=== PATIENT | male | born 1935 | race Caucasian/White ===

== ENCOUNTER 2017-03-29 09:24 | Day surgery (SDC) | payer MEDICARE ==
[~2017-03-29] VITALS: Ht 185.4 cm; Wt 93.8 kg
[~2017-03-29 09:24] MED LIST: ABX; ACCUPRIL; AMLO10 PO; ASPI81EC PO; CEPH500 PO; CHOL10002 PO; Cinnamon500 MG PO; DIGO.125 PO; DIGO.25; DILT180 PO; DILT180ER; ERGO50000 PO; GABA300 PO; GLIM4 PO; HCTZ; HYDCHL25; JARDIANCE25 MG PO; LOVA40; METF500; METO100ER; METO100ER PO; PROCARDIA; PROVASTATIN; QUIN10; QUIN5; RAMI2.5 PO; TAZTIA XT360 MG PO; TIMOPTIC; TOPROL XL; TORSE20 PO; TRAV.004OP OD; WARF1; WARF5; [UNRECOGNIZED DRUG - OTHER]; [UNRECOGNIZED DRUG - OTHER]
[2017-03-29 10:23] LABS: International Normalized Ratio 1.51; Prothrombin Time Results 15.9 Sec (9.7-11.5)
[2017-06-05] MEDS ORDERED: COUMADIN (01:09)
[2018-01-22] MEDS ORDERED: TUMS X-STR300 MG PO (13:50)
[2018-01-22] MEDS ORDERED: K-Dur20 MEQ PO (13:51)
[2018-01-22] MEDS ORDERED: FINA5 PO (13:52)
[2018-01-22] MEDS ORDERED: WARF3 PO (13:52)
[2018-01-22] MEDS ORDERED: DONE5 PO (13:53)
[2018-01-22] MEDS ORDERED: PRAV20 PO (13:53)
[2018-01-22] MEDS ORDERED: MIRALAX17 GM PO (13:54)
== END 2017-03-29 14:20 | disposition home or self-care (01) ==
LOC: ORSCSDS 09:24
PROVIDERS: Podiatrist Foot & Ankle Surgery
PROC: 0QBP0ZZ Excision of Left Metatarsal, Open Approach (ICD-10-PCS; principal; 2017-03-29 11:00)
DX: M77.9 Enthesopathy, unspecified (principal); M25.872 Other specified joint disorders, left ankle and foot; M89.9 Disorder of bone, unspecified; I10 Essential (primary) hypertension; E78.5 Hyperlipidemia, unspecified; I50.9 Heart failure, unspecified; I48.91 Unspecified atrial fibrillation; E11.9 Type 2 diabetes mellitus without complications; Z79.01 Long term (current) use of anticoagulants; Z79.899 Other long term (current) drug therapy; Z87.891 Personal history of nicotine dependence
CPT/HCPCS: 82947; 85610; J0690; J2250; J2370; J7120

== ENCOUNTER → 2017-06-05 | Outpatient (CLI) | payer MEDICARE ==
[~2017-06-05] MED LIST changes: +COUMADIN
== END ==
LOC: LAB 17:23 → LAB SHORT 17:23
DX: E11.9 Type 2 diabetes mellitus without complications (principal); Z87.898 Personal history of other specified conditions
CPT/HCPCS: 87070; 87077; 87147; 87186; 87205

== ENCOUNTER → 2019-06-23 | Outpatient (CLI) | payer MEDICARE ==
[~2019-06-23] MED LIST changes: +DONE5 PO; +FINA5 PO; +K-Dur20 MEQ PO; +MIRALAX17 GM PO; +PRAV20 PO; +TUMS X-STR300 MG PO; +WARF3 PO
== END | disposition home or self-care (01) ==
LOC: LAB SHORT 14:20 → LAB 14:20
DX: E11.9 Type 2 diabetes mellitus without complications (principal); L89.521 Pressure ulcer of left ankle, stage 1
CPT/HCPCS: 87070; 87075; 87205

== ENCOUNTER 2019-11-10 00:51 | Day surgery (SDC) | payer MEDICARE ==
[~2019-11-10 00:51] MED LIST changes: +ARTIFICIAL TEAR15 M2 BOTHEYES; -CHOL10002 PO; +COSOPT PF EYE1 EACH RIGHTEYE; -DIGO.125 PO; +LANOXIN125 MCG PO; +TRAVOPROST2.5 ML RIGHTEYE; -TUMS X-STR300 MG PO; +TUMS500 MG PO; +VITAMIN D32000 UNI1 PO
== END 2019-11-10 22:52 | disposition home or self-care (01) ==
LOC: WOUND 00:51
DX: E11.621 Type 2 diabetes mellitus with foot ulcer (principal); M86.172 Other acute osteomyelitis, left ankle and foot; E78.5 Hyperlipidemia, unspecified; L97.522 Non-pressure chronic ulcer of other part of left foot with fat layer exposed; I48.91 Unspecified atrial fibrillation; I11.0 Hypertensive heart disease with heart failure; I50.9 Heart failure, unspecified; Z88.2 Allergy status to sulfonamides; Z87.891 Personal history of nicotine dependence; Z79.899 Other long term (current) drug therapy; Z79.01 Long term (current) use of anticoagulants; Z79.84 Long term (current) use of oral hypoglycemic drugs

== ENCOUNTER 2019-11-17 01:05 | Day surgery (SDC) | payer MEDICARE ==
[2019-11-30] MEDS ORDERED: SEROQUEL25 MG PO (09:41)
== END 2019-11-17 23:20 | disposition home or self-care (01) ==
LOC: WOUND 01:05
DX: E11.621 Type 2 diabetes mellitus with foot ulcer (principal); E11.40 Type 2 diabetes mellitus with diabetic neuropathy, unspecified; M86.172 Other acute osteomyelitis, left ankle and foot; I10 Essential (primary) hypertension; L97.525 Non-pressure chronic ulcer of other part of left foot with muscle involvement without evidence of necrosis; I48.91 Unspecified atrial fibrillation; E78.5 Hyperlipidemia, unspecified; Z79.01 Long term (current) use of anticoagulants; Z79.899 Other long term (current) drug therapy; Z79.84 Long term (current) use of oral hypoglycemic drugs

== ENCOUNTER → 2019-11-21 | Outpatient (CLI) | payer MEDICARE ==
[~2019-11-21] MED LIST changes: +CYAN500 PO; +DIGOX125 MC1 PO; +LINZESS145 MCG PO; +QUET100 PO; +RAMI5 PO; +SEROQUEL25 MG PO; +TIMDOROPSO BOTHEYES; +Vitamin D2000 UNIT PO
[2019-11-21 16:44] LABS: Albumin, Blood 2.9 g/dL (3.4-5.0); Prealbumin, Blood 16.9 mg/dL (20.0-40.0)
== END | disposition home or self-care (01) ==
LOC: LAB 15:10 → LAB SHORT 15:10
PROVIDERS: Surgery
DX: E11.621 Type 2 diabetes mellitus with foot ulcer (principal); L97.509 Non-pressure chronic ulcer of other part of unspecified foot with unspecified severity
CPT/HCPCS: 82040; 83036; 84134

== ENCOUNTER 2019-11-22 09:58 | Emergency (ER) | payer MEDICARE ==
[~2019-11-22] VITALS: Ht 185.4 cm; Wt 97.5 kg
[~2019-11-22 09:58] MED LIST changes: -CYAN500 PO; -DIGOX125 MC1 PO; -LINZESS145 MCG PO; -QUET100 PO; -RAMI5 PO; -SEROQUEL25 MG PO; -TIMDOROPSO BOTHEYES; -Vitamin D2000 UNIT PO
[2019-11-22 10:38] LABS: BASOPHILS ABSOLUTE AUTO 0.05 K/mm3 (0.00-0.23); BASOPHILS PERCENT AUTO 1 % (0-2); EOSINOPHILS ABSOLUTE AUTO 0.12 K/mm3 (0.00-0.68); EOSINOPHILS PERCENT AUTO 2 % (0-6); Hemoglobin 13.2 g/dL (13.5-17.5); IMMATURE GRAN ABSOLUTE AUTO 0.03 K/mm3 (0.00-0.10); IMMATURE GRAN PERCENT AUTO 0 % (0-1); LYMPHOCYTES ABSOLUTE AUTO 1.16 K/mm3 (0.84-5.20); LYMPHOCYTES PERCENT AUTO 15 % (21-46); MONOCYTES ABSOLUTE AUTO 0.94 K/mm3 (0.16-1.47); MONOCYTES PERCENT AUTO 12 % (4-13); Mean Corpuscular HGB 29.3 pg (26.0-34.0); Mean Corpuscular HGB Conc 32.2 g/dL (31.5-36.5); Mean Corpuscular Volume 91 fL (80-100); NEUTROPHILS ABSOLUTE AUTO 5.57 K/mm3 (1.96-9.15); NEUTROPHILS PERCENT AUTO 71 % (41-73); Platelet Count 127 K/mm3 (150-400); RDW Coefficient Variation 13.4 % (11.7-14.2); RDW Standard Deviation 45.1 fL (35.1-46.3); White Blood Cell Count 7.87 K/mm3 (4.00-11.30)
[2019-11-22 10:47] LABS: International Normalized Ratio 2.96; Prothrombin Time Results 29.8 Sec (9.7-11.5)
[2019-11-22 11:07] LABS: Alanine Aminotransfer (ALT/SGP 66 U/L (12-78); Albumin, Blood 3.6 g/dL (3.4-5.0); Alk Phos 95 U/L (50-136); Anion Gap 5 mmol/L (6-16); Aspartate Aminotrans (AST/SGOT 31 U/L (12-37); Bilirubin, Total 1.6 mg/dL (0.1-1.0); Blood Urea Nitrogen 14 mg/dL (8-24); Bun/Creatinine Ratio 14.7 (12.0-20.0); CO2, Blood 25 mmol/L (21-32); Calcium, Blood 9.3 mg/dL (8.5-10.1); Chloride, Blood 110 mmol/L (98-108); Creatinine, Blood 0.96 mg/dL (0.60-1.20); Digoxin (Lanoxin) 0.52 ug/mL (0.80-2.00); Globulin, Blood 3.5 g/dL (2.2-4.0); Glomerular Filtration Rate >60 (60-); Glucose, Blood 114 mg/dL (70-99); Potassium, Blood 3.8 mmol/L (3.5-5.5); Sodium, Blood 140 mmol/L (136-145); Total Protein, Blood 7.1 g/dL (6.4-8.2); Troponin I <0.015 ng/mL (0.000-0.040)
[2019-11-22] MEDS ORDERED: JARDIANCE25 MG PO (11:18)
[2019-11-22] MEDS ORDERED: K-Dur20 MEQ PO (11:19)
[2019-11-22] MEDS ORDERED: DONEPEZIL HCL10 MG PO (11:20)
[2019-11-22] MEDS ORDERED: TAZTIA XT360 MG PO (11:20)
[2019-11-22] MEDS ORDERED: DIGOX125 MC1 PO (11:20)
[2019-11-22] MEDS ORDERED: FINA5 PO (11:21)
[2019-11-22] MEDS ORDERED: GABA300 PO (11:22)
[2019-11-22] MEDS ORDERED: METO100ER PO (11:23)
[2019-11-22] MEDS ORDERED: Vitamin D2000 UNIT PO (11:24)
[2019-11-22] MEDS ORDERED: TORSE20 PO (11:24)
[2019-11-22] MEDS ORDERED: CYAN500 PO (11:26)
[2019-11-22] MEDS ORDERED: RAMI5 PO (11:27)
[2019-11-22] MEDS ORDERED: QUET100 PO (11:27)
[2019-11-22] MEDS ORDERED: GLIM4 PO (11:28)
[2019-11-22] MEDS ORDERED: WARF5 PO (11:28)
[2019-11-22] MEDS ORDERED: LINZESS145 MCG PO (11:29)
[2019-11-22 11:39] LABS: Source, Urine Clean Catch
[2019-11-22 11:45] LABS: Appearance, Urine Clear (Clear); Bilirubin, Urine Neg (Neg); Blood, Urine Neg (Neg); Color, Urine Yellow (P-Yellow); Glucose Qualitative, Urine 4+ (Neg); Ketones, Urine Neg (Neg); Leukocyte Esterase, Urine Neg (Neg); Nitrite, Urine Neg (Neg); Protein, Urine Neg (Neg); Urobilinogen, Urine NORM (Normal)
== END 2019-11-22 17:00 | disposition home or self-care (01) ==
LOC: ER 09:58
PROVIDERS: Emergency Medicine
DX: F03.91 Unspecified dementia, unspecified severity, with behavioral disturbance (principal); R44.1 Visual hallucinations; I48.91 Unspecified atrial fibrillation; D68.32 Hemorrhagic disorder due to extrinsic circulating anticoagulants; T45.515A Adverse effect of anticoagulants, initial encounter; I10 Essential (primary) hypertension; E11.40 Type 2 diabetes mellitus with diabetic neuropathy, unspecified; E78.5 Hyperlipidemia, unspecified; Z88.2 Allergy status to sulfonamides; Z79.84 Long term (current) use of oral hypoglycemic drugs; Z79.899 Other long term (current) drug therapy; Z79.01 Long term (current) use of anticoagulants
CPT/HCPCS: 36415; 70450; 71045; 80053; 80162; 81003; 83605; 84484; 85025; 85610; 93005; 93010; 96360; 96361; 99285-25; J7030

== ENCOUNTER 2019-11-24 00:20 | Day surgery (SDC) | payer MEDICARE ==
[~2019-11-24 00:20] MED LIST changes: +CYAN500 PO; +DIGOX125 MC1 PO; +DONEPEZIL HCL10 MG PO; +LINZESS145 MCG PO; +QUET100 PO; +RAMI5 PO; +Vitamin D2000 UNIT PO; +WARF5 PO
[2019-11-30] MEDS ORDERED: SEROQUEL25 MG PO (09:41)
== END 2019-11-24 22:49 | disposition home or self-care (01) ==
LOC: WOUND 00:20
DX: E11.621 Type 2 diabetes mellitus with foot ulcer (principal); M86.172 Other acute osteomyelitis, left ankle and foot; I10 Essential (primary) hypertension; E78.5 Hyperlipidemia, unspecified; E11.622 Type 2 diabetes mellitus with other skin ulcer; L97.822 Non-pressure chronic ulcer of other part of left lower leg with fat layer exposed; L97.525 Non-pressure chronic ulcer of other part of left foot with muscle involvement without evidence of necrosis; Z79.84 Long term (current) use of oral hypoglycemic drugs; Z79.899 Other long term (current) drug therapy

== ENCOUNTER 2019-12-20 09:28 | Emergency (ER) | payer MEDICARE ==
[~2019-12-20] VITALS: Ht 185.4 cm; Wt 83.9 kg
[~2019-12-20 09:28] MED LIST changes: +ACET325 PO; +ASPI81CH PO; +CIPRO250 MG PO; +DOCUZEN 8.6-501 EACH PO; -DONEPEZIL HCL10 MG PO; +GABA400 PO; +GLYDO11 ML UR; +QUET25 PO; +SEROQUEL25 MG PO; +TIMDOROPSO BOTHEYES; +TRAM50 PO; -WARF5 PO
[2019-12-20] MEDS ORDERED: DORZOLAMIDE-TIM10 ML BOTHEYES (09:43)
[2019-12-20] MEDS ORDERED: DILT180 PO (09:43)
[2019-12-20] MEDS ORDERED: LANOXIN125 MCG PO (09:43)
[2019-12-20] MEDS ORDERED: FINA5 PO (09:43)
[2019-12-20] MEDS ORDERED: CIPRO250 MG PO (09:43)
[2019-12-20] MEDS ORDERED: GLIM4 PO (09:44)
[2019-12-20] MEDS ORDERED: JARDIANCE25 MG PO (09:44)
[2019-12-20] MEDS ORDERED: GLYDO11 ML (09:44)
[2019-12-20] MEDS ORDERED: POTA10T PO (09:44)
[2019-12-20] MEDS ORDERED: PRAV20 PO (09:44)
[2019-12-20] MEDS ORDERED: QUET100 PO (09:45)
[2019-12-20] MEDS ORDERED: RAMI5 PO (09:45)
[2019-12-20] MEDS ORDERED: WARF3 PO ×2 (09:46)
== END 2019-12-20 11:50 | disposition home or self-care (01) ==
LOC: ER 09:28
DX: T83.031A Leakage of indwelling urethral catheter, initial encounter (principal); N48.89 Other specified disorders of penis; F03.91 Unspecified dementia, unspecified severity, with behavioral disturbance; I48.91 Unspecified atrial fibrillation; I10 Essential (primary) hypertension; E11.40 Type 2 diabetes mellitus with diabetic neuropathy, unspecified; E78.5 Hyperlipidemia, unspecified; Z88.2 Allergy status to sulfonamides; Z79.899 Other long term (current) drug therapy; Z79.01 Long term (current) use of anticoagulants; Z79.82 Long term (current) use of aspirin; Z88.1 Allergy status to other antibiotic agents; Z95.0 Presence of cardiac pacemaker; Z87.891 Personal history of nicotine dependence
CPT/HCPCS: 99283

== ENCOUNTER → 2020-03-15 | Outpatient (CLI) | payer MEDICARE ==
[~2020-03-15] MED LIST changes: +DORZOLAMIDE-TIM10 ML BOTHEYES; +GLYDO11 ML; +POTA10T PO
[2020-03-16 16:30] LABS: Source, Urine Clean Catch
[2020-03-16 18:05] LABS: Appearance, Urine Clear (Clear); Bilirubin, Urine Neg (Neg); Blood, Urine Neg (Neg); Color, Urine Yellow (P-Yellow); Glucose Qualitative, Urine 4+ (Neg); Ketones, Urine Neg (Neg); Leukocyte Esterase, Urine Neg (Neg); Nitrite, Urine Neg (Neg); Protein, Urine Neg (Neg); Urobilinogen, Urine NORM (Normal)
[2020-03-16 19:02] LABS: Bacteria Not Seen /hpf; Red Blood Cells, Urine 0-2 /hpf (0-2); Squamous Epithelial Cells Rare /hpf (Few); White Blood Cells, Urine 0-2 /hpf (0-5)
== END | disposition home or self-care (01) ==
LOC: LAB SHORT 16:28 → LAB 16:28
PROVIDERS: Physician Assistant
DX: R30.9 Painful micturition, unspecified (principal)
CPT/HCPCS: 81001; 81003

== ENCOUNTER → 2020-05-12 | Outpatient (CLI) | payer MEDICARE ==
[2020-05-13 16:43] LABS: Adenovirus F 40/41 Not Detected (NOT DETECT); Astrovirus Not Detected (NOT DETECT); Campylobacter Sp Not Detected (NOT DETECT); Cryptosporidium Not Detected (NOT DETECT); Cyclospora Cayetanensis Not Detected (NOT DETECT); E. Coli O157 Not Detected (NOT DETECT); Entamoeba Histolytica Not Detected (NOT DETECT); Enteroaggregative E. coli-EAEC Not Detected (NOT DETECT); Enteropathogenic E. coli-EPEC Not Detected (NOT DETECT); Enterotoxigenic E. coli-ETEC Not Detected (NOT DETECT); Giardia Lamblia Not Detected (NOT DETECT); Norovirus GI/GII Not Detected (NOT DETECT); Plesiomonas Shigelloides Not Detected (NOT DETECT); Rotavirus A Not Detected (NOT DETECT); Salmonella Sp Not Detected (NOT DETECT); Sapovirus Not Detected (NOT DETECT); Shiga Toxin-prod E. coli-STEC Not Detected (NOT DETECT); Shigella/Enteroin E. coli-EIEC Not Detected (NOT DETECT); Vibrio Cholerae Not Detected (NOT DETECT); Vibrio Sp Not Detected (NOT DETECT); Yersinia Enterocolitica Not Detected (NOT DETECT)
== END | disposition home or self-care (01) ==
LOC: LAB SHORT 16:25 → LAB 16:25
PROVIDERS: Physician Assistant
DX: E78.5 Hyperlipidemia, unspecified (principal); K59.00 Constipation, unspecified; I27.20 Pulmonary hypertension, unspecified; R19.7 Diarrhea, unspecified; Z79.84 Long term (current) use of oral hypoglycemic drugs
CPT/HCPCS: 0097U

== ENCOUNTER → 2020-08-10 | Outpatient (CLI) | payer MEDICARE | END | disposition home or self-care (01) | LOC: LAB SHORT 07:14 → LAB 07:14 | DX: L98.499 Non-pressure chronic ulcer of skin of other sites with unspecified severity (principal) | CPT/HCPCS: 88305; 88341; 88342 ==

== ENCOUNTER 2021-01-03 08:01 | Day surgery (SDC) | payer MEDICARE ==
[~2021-01-03] VITALS: Ht 185.4 cm; Wt 88.9 kg
--- NOTE | 2021-01-03 10:11 | NUR ---
TO THE BEDSIDE POST PROCEDURE TO SPEAK WITH DR. RODRIGUEZ. HE INFORMED THE THAT THE PATIENT WILL NEED TO BE ON ELIQUIS. SCRIPT GIVEN TO THE FOR MAIL IN SERVICE AND CALLED IN [employer] FOR THE PATIENT AT [facility] TO S[facility] [employer]EL[employer].
--- NOTE | 2021-01-03 10:14 | NUR ---
CONTINUE TO MONITOR THE PATIENT POST MICHELLE/ANESTHESIA PROCEDURE.
--- NOTE | 2021-01-03 10:21 | NUR ---
ANESTHESIA END TIME 1021. PATIENT WAKING TO VERBAKL COMMANDS.
[2021-01-03] MEDS ORDERED: ELIQUIS5 M2 PO (10:27)
--- NOTE | 2021-01-03 10:53 | NUR ---
PIV REMOVED FROM THE RIGHT AC AND PRESSURE DRESSING APPLIED. ASSISTED THE PATIENT WITH SITTING ON THE SIDE OF THE BED, DRESSING, AND GATHERING ALL BELONINGS. NO PAIN, NO BREATHING ISSUES, NO SORENESS IN THE THROAT. PATIENT WAS ASSISTED TO THE WHEELCHAIR AND REVEIWED DISCAHRGE INSTRUCTIONS WITH THE PATIENT AND . SIGNATURES OBTAINED AND COPIES GIVEN. DISCHARGED HOME VIA WHEELCHAIR.
== END 2021-01-03 23:00 | disposition home or self-care (01) ==
LOC: MHTC 08:01
DX: I48.11 Longstanding persistent atrial fibrillation (principal); I10 Essential (primary) hypertension; E78.5 Hyperlipidemia, unspecified; E11.9 Type 2 diabetes mellitus without complications; H54.8 Legal blindness, as defined in USA; I27.20 Pulmonary hypertension, unspecified; I07.1 Rheumatic tricuspid insufficiency; H40.9 Unspecified glaucoma; Z88.2 Allergy status to sulfonamides; Z79.82 Long term (current) use of aspirin; Z95.0 Presence of cardiac pacemaker; Z79.84 Long term (current) use of oral hypoglycemic drugs
CPT/HCPCS: 93312; 93325; A9270; J7030

== ENCOUNTER → 2021-02-23 | Outpatient (CLI) | payer MEDICARE ==
[~2021-02-23] MED LIST changes: +ELIQUIS5 M2 PO
[2021-02-24 16:56] LABS: Adenovirus F 40/41 Not Detected (NOT DETECT); Astrovirus Not Detected (NOT DETECT); Campylobacter Sp Not Detected (NOT DETECT); Cryptosporidium Not Detected (NOT DETECT); Cyclospora Cayetanensis Not Detected (NOT DETECT); E. Coli O157 Not Detected (NOT DETECT); Entamoeba Histolytica Not Detected (NOT DETECT); Enteroaggregative E. coli-EAEC Not Detected (NOT DETECT); Enteropathogenic E. coli-EPEC Not Detected (NOT DETECT); Enterotoxigenic E. coli-ETEC Not Detected (NOT DETECT); Giardia Lamblia Not Detected (NOT DETECT); Norovirus GI/GII Not Detected (NOT DETECT); Plesiomonas Shigelloides Not Detected (NOT DETECT); Rotavirus A Not Detected (NOT DETECT); Salmonella Sp Not Detected (NOT DETECT); Sapovirus Not Detected (NOT DETECT); Shiga Toxin-prod E. coli-STEC Not Detected (NOT DETECT); Shigella/Enteroin E. coli-EIEC Not Detected (NOT DETECT); Vibrio Cholerae Not Detected (NOT DETECT); Vibrio Sp Not Detected (NOT DETECT); Yersinia Enterocolitica Not Detected (NOT DETECT)
== END | disposition home or self-care (01) ==
LOC: LAB SHORT 13:54
PROVIDERS: Internal Medicine
DX: R19.7 Diarrhea, unspecified (principal)
CPT/HCPCS: 0097U

== ENCOUNTER → 2021-02-28 | Outpatient (CLI) | payer MEDICARE ==
[2021-02-28 15:22] LABS: Appearance, Urine Clear (Clear); Bilirubin, Urine Neg (Neg); Blood, Urine Neg (Neg); Color, Urine Yellow (P-Yellow); Glucose Qualitative, Urine 4+ (Neg); Ketones, Urine Neg (Neg); Leukocyte Esterase, Urine Neg (Neg); Nitrite, Urine Neg (Neg); Protein, Urine Neg (Neg); Specific Gravity, Urine 1.015 (1.003-1.022); Urobilinogen, Urine NORM (Normal)
== END | disposition home or self-care (01) ==
LOC: LAB 12:50 → LAB SHORT 12:50 → EDSTATUS 16:02
PROVIDERS: Internal Medicine
DX: R35.0 Frequency of micturition (principal)
CPT/HCPCS: 81003

== ENCOUNTER → 2021-05-11 | Outpatient (CLI) | payer MEDICARE ==
[~2021-05-11] MED LIST changes: +Aspir 8181 MG PO; +B-121000 MC3 PO; +METO50ER PO; +VITAMIN B-122000 MC1 PO; +Vitamin D1000 UNI1 PO
[2021-05-11 18:48] LABS: Appearance, Urine Clear (Clear); Bilirubin, Urine Neg (Neg); Blood, Urine Neg (Neg); Color, Urine Yellow (P-Yellow); Glucose Qualitative, Urine 4+ (Neg); Ketones, Urine Neg (Neg); Leukocyte Esterase, Urine Neg (Neg); Nitrite, Urine Neg (Neg); Protein, Urine Neg (Neg); Urobilinogen, Urine NORM (Normal)
== END ==
LOC: LAB SHORT 11:56 → LAB 11:56 → LAB FUT 05-10 15:10
PROVIDERS: Psychiatry & Neurology Neurology
DX: R44.1 Visual hallucinations (principal); R35.0 Frequency of micturition
CPT/HCPCS: 81003

== ENCOUNTER 2021-05-19 09:31 | Day surgery (SDC) | payer MEDICARE ==
--- NOTE | 2021-05-16 08:43 | NUR ---
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 DR. RODRIGUEZ WAS NOTIFIED.
[~2021-05-19] VITALS: Ht 185.4 cm; Wt 85.9 kg
[~2021-05-19 09:31] MED LIST changes: -Aspir 8181 MG PO; -B-121000 MC3 PO; -METO50ER PO; -VITAMIN B-122000 MC1 PO; -Vitamin D1000 UNI1 PO
--- NOTE | 2021-05-19 10:33 | NUR ---
PATIENT ARRIVED BACK THIS MORNING, NPO TO RESCHEDULED FOR MICHELLE. [place] HAS MEDICATION LIST AND HAS BEEN NPO. BROUGHT TO THE PROCEDURE ROOM AND UNDRESSED, PLACED IN THE BED, ON THE MONITOR, VVS. EKG OBTAINED AND PIV STARTED TO THE LEFT AC.
[2021-05-19] MEDS ORDERED: METO50ER PO (10:41)
[2021-05-19] MEDS ORDERED: DONE5 PO (10:42)
[2021-05-19] MEDS ORDERED: Aspir 8181 MG PO (10:44)
[2021-05-19] MEDS ORDERED: Vitamin D1000 UNI1 PO (10:45)
[2021-05-19] MEDS ORDERED: VITAMIN B-122000 MC1 PO (10:45)
[2021-05-19] MEDS ORDERED: B-121000 MC3 PO (10:45)
--- NOTE | 2021-05-19 12:39 | NUR ---
MICHELLE WITH ANESTHESIA COMPLETE. PATIENT TOLERATED WELL. PATEINT WAKING AND CONVERSING WITH THE NURSE. VVS. NO PAIN NOTED FROM THE PATIENT.
--- NOTE | 2021-05-19 12:54 | NUR ---
PATIENT UP AND OFF THE MONITOR. DRESSING WITH MINIMAL ASSISTANCE. PIV REMOVED, CATH TIP INTACT AND PRESSURE DRESSING APPLIED. PATIENT ASSISTED TO THE WHEELCHAIR AND ALL BELONGINGS GATHERED. DISCHARGED HOME VIA WHEELCHAIR TO CAR.
== END 2021-05-19 23:30 | disposition home or self-care (01) ==
LOC: MHTC 09:31
DX: I48.11 Longstanding persistent atrial fibrillation (principal); I48.92 Unspecified atrial flutter; I70.0 Atherosclerosis of aorta; I08.1 Rheumatic disorders of both mitral and tricuspid valves; I11.9 Hypertensive heart disease without heart failure; I27.20 Pulmonary hypertension, unspecified; E11.9 Type 2 diabetes mellitus without complications; H54.8 Legal blindness, as defined in USA; Z88.2 Allergy status to sulfonamides; Z79.82 Long term (current) use of aspirin; Z79.84 Long term (current) use of oral hypoglycemic drugs; Z95.0 Presence of cardiac pacemaker; Z79.01 Long term (current) use of anticoagulants
CPT/HCPCS: 93005; 93010; 93312; 93325; A9270; J2704; J7030